=== PATIENT | female | born 1995 | race Caucasian/White ===

== ENCOUNTER 2017-03-11 23:57 | Emergency (ER) | payer OTHER ==
[2017-03-12 00:18] VITALS: TEMP 98.6
--- NOTE | 2017-03-12 00:49 | C.PDOC ---
History Of Present Illness 21 year old female with a history of schizophrenia presents to the ED with complaints of vague abdominal pain and nausea for 2 days. She notes she is eating well. Patient denies diarrhea, vomiting, suicidal or homicidal ideatons. Time Seen by Provider: 03/12/17 00:37 Chief Complaint (Nursing): Abdominal Pain History Per: Patient History/Exam Limitations: no limitations Onset/Duration Of Symptoms: Days (2 days ) Current Symptoms Are (Timing): Still Present Location Of Pain/Discomfort: Diffuse Radiation Of Pain To:: None Quality Of Discomfort: "Pain" Associated Symptoms: Nausea. denies: Fever, Chills, Vomiting, Diarrhea Recent travel outside of the [place]: No Abnormal Vaginal Bleeding: No Past Medical History Reviewed: Historical Data, Nursing Documentation, Vital Signs Vital Signs: Last Vital Signs Temp 98.6 F 03/12/17 00:13 Pulse 82 03/12/17 02:05 Resp 18 03/12/17 02:05 BP 142/82 03/12/17 02:05 Pulse Ox 99 03/12/17 06:36 - Medical History PMH: Schizophrenia - [facility] PSYCHIA INTERV/EVAL NEC (05/20/13) Family History: States: Unknown Family Hx - Social History Hx Tobacco Use: No Hx Alcohol Use: No Hx Substance Use: No - Immunization History Hx Tetanus Toxoid Vaccination: No Hx Influenza Vaccination: No Hx Pneumococcal Vaccination: No Review Of Systems Constitutional: Negative for: Fever, Chills Gastrointestinal: Positive for: Nausea, Abdominal Pain. Negative for: Vomiting , Diarrhea Genitourinary: Negative for: Dysuria, Hematuria Psych: Negative for: Suicidal ideation Physical Exam - Physical Exam Additional Physical Exam Comments: Constitutional: No acute distress. WDWN. Patient appears to have a mental delay. Well appearing. Head: Normocephalic. Atraumatic. Eyes: PERRL. EOMI. ENT: Moist mucous membranes. Neck: Supple. Cardiovascular: Regular rate and rhythm. Chest: No tenderness. Respiratory: Clear to auscultation bilaterally. GI: Soft. Nontender. Nondistended. Normoactive bowel sounds. No rebound. No guarding. Back: No CVA and no mid-line tenderness. Musculoskeletal: No tenderness or swelling of extremities. Skin: No rash. Neurologic: Alert, no focal deficit. No urinary symptoms. ED Course And Treatment O2 Sat by Pulse Oximetry: 99 (room air ) Medical Decision Making Medical Decision Making: pt feeling much better after zofran odt and is tolerating po fluids. will d/c home with zofran odt and pmd f/u. Disposition Counseled Patient/Family Regarding: Diagnosis, Need For Followup, Rx Given - Disposition Referrals: Asad Garcia MD [Staff Provider] - Disposition: HOME/ ROUTINE Disposition Time: 02:08 Condition: IMPROVED Additional Instructions: Eat small meals several times a day; avoid spicy foods, fried foods. Take zofran up to 3 times a day for nausea if needed. Follow up with your doctor on fri or . Return to ER for any worsening pain. Prescriptions: Ondansetron ODT [Zofran ODT] 4 mg PO TID #12 odt Forms: Gen Discharge Inst Turkmen Print Language: WELSH - Clinical Impression Clinical Impression: Nausea - Scribe Statement The provider has reviewed the documentation as recorded by the Scribe Anna Chan All medical record entries made by the Walkeribfely were at my direction and personally dictated by me. I have reviewed the chart and agree that the record accurately reflects my personal performance of the history, physical exam, medical decision making, and the department course for this patient. I have also personally directed, reviewed, and agree with the discharge instructions and disposition.
[2017-03-12 01:13] LABS: RBC URINE < 1 /hpf (0-3); URINE BILIRUBIN NEGATIVE (NEGATIVE); URINE BLOOD NEGATIVE (NEGATIVE); URINE COLOR Yellow (YELLOW); URINE GLUCOSE (UA) NORMAL (Normal); URINE HYALINE CAST 0-2 /lpf (0-2); URINE KETONE NEGATIVE (NEGATIVE); URINE LEUKOCYTE ESTERASE NEG Leu/uL (Negative); URINE PROTEIN NEGATIVE (NEGATIVE); URINE UROBILINOGEN NORMAL mg/dL (0.2-1.0); WBC URINE < 1 /hpf (0-5)
[2017-03-12 02:06] VITALS: BP 142/82; PULSE 82; RESP 18
[2017-03-12 02:08] VITALS: O2SAT 99
== END 2017-03-12 02:17 | disposition home or self-care (01) ==
LOC: C.ER 23:57
DX: R11.0 Nausea (principal)